=== PATIENT | female | born 1960 | race Two or more races ===

== ENCOUNTER 2017-06-02 07:47 | Inpatient (IN) | payer MEDICAID ==
[~2017-06-02] VITALS: Ht 157.5 cm; Wt 83.9 kg
[2017-06-02] MEDS ORDERED: LIDOCAINE HCL 2 %PF INJ 10ML AMP IJ ONE ×2 (08:04→09:26)
[2017-06-02] MEDS ORDERED: IODIXANOL 320MG/ML 100ML BTL IV ONE (08:04)
[2017-06-02] MEDS ORDERED: COLCPOW2 PO (08:08)
[2017-06-02] MEDS ORDERED: GLIP-116 PO (08:08)
[2017-06-02] MEDS ORDERED: NITR0.4S29 SL (08:08)
[2017-06-02] MEDS ORDERED: METF-370 PO (08:08)
[2017-06-02] MEDS ORDERED: INDO50CA82 PO (08:08)
[2017-06-02] MEDS ORDERED: CETI10TA93 PO (08:08)
[2017-06-02] MEDS ORDERED: ANGIOMAX 250 MG VIAL IV ONE ×2 (08:22→10:24)
[2017-06-02] MEDS ORDERED: fentaNYL CITRATE 100 MCG/2 ML VL ONE (08:22)
[2017-06-02] MEDS ORDERED: MIDAZOLAM HCL 1MG/1ML-2 ML VIAL ONE (08:23)
[2017-06-02] MEDS ORDERED: SODIUM CHL 0.9% 50 ML ONE ×3 (08:23→10:24)
[2017-06-02] MEDS ORDERED: DULA1INJ SC (08:39)
[2017-06-02] MEDS ORDERED: BUPR100T14 PO (08:39)
[2017-06-02] MEDS ORDERED: ASPI81TA27 PO (08:39)
[2017-06-02] MEDS ORDERED: HYDR-3682 PO (08:39)
[2017-06-02] MEDS ORDERED: ATOR10TA52 PO (08:39)
[2017-06-02] MEDS ORDERED: HYDR-4683 PO (08:39)
[2017-06-02] MEDS ORDERED: LISI10TA6 PO (08:39)
[2017-06-02] MEDS ORDERED: methylPREDNISolone SOD SUCC 125 MG/2 ML VL ONE (08:58)
[2017-06-02] MEDS ORDERED: FAMOTIDINE (10MG/ML) 2ML VL IV ONE (08:58)
[2017-06-02] MEDS ORDERED: diphenhdrAMINE HCL 50 MG/1 ML VL ONE (08:58)
[2017-06-02] MEDS ORDERED: CLOPIDOGREL 300 MG TAB ONE (10:16)
[2017-06-02] MEDS ORDERED: ASPirin 325 MG TAB ONE (10:17)
[2017-06-02] MEDS ORDERED: ASPirin 325 MG TAB PO ONE (10:30)
[2017-06-02] MEDS ORDERED: MORPHINE SULFATE 4 MG/ML SYR/VIAL IV PRN (10:45)
[2017-06-02] MEDS ORDERED: HYDROcodone-ACET 5/325MG TAB PO PRN (10:45)
[2017-06-02] MEDS ORDERED: SODIUM CHLORIDE 0.9% 1,000 ML IV ONE (10:45)
[2017-06-02] MEDS ORDERED: ONDANSETRON HCL 4 MG/2 ML VIAL IV PRN (10:45)
[2017-06-02] MEDS ORDERED: NITROGLYCERIN 0.4 MG SL TAB SL PRN (10:45)
[2017-06-02] MEDS ORDERED: Dulaglutide (Trulicity) 0.75 MG SC SCH (11:00)
[2017-06-02] MEDS ORDERED: DEXTROSE (50%) 50ML SYRG IV PRN ×2 (11:15→23:00)
[2017-06-02] MEDS: INDOMETHACIN 50 MG PO SCH ×3 (12:00→22:00)
[2017-06-02] MEDS: ACCU-CHEK COMFORT CURVE STRIP VI SCH ×3 (12:17→22:20)
[2017-06-02] MEDS: InsuLIN REG 1unit/0.01ml Soln (100units/ml) SC SCH ×2 (12:26→17:01)
[2017-06-02 13:00] VITALS: BP 147/76
[2017-06-02] MEDS: hydrOXYzine 25 MG TAB or CAP PO SCH ×2 (13:29→22:14)
[2017-06-02] MEDS: SODIUM CHLOR 0.9% PF (SALINE LOCK) 10ML VIAL IV SCH ×2 (13:29→22:14)
[2017-06-02 16:51] VITALS: BP 126/64
[2017-06-02] MEDS: ACETAMINOPHEN 500 MG TAB PO PRN ×2 (16:51→22:16)
[2017-06-02] MEDS: glipiZIDE 5 MG TAB PO SCH (16:55)
[2017-06-02] MEDS ORDERED: diphenhdrAMINE HCL 25 MG CAP PO PRN (18:00)
[2017-06-02] MEDS ORDERED: InsuLIN REG 1unit/0.01ml Soln (100units/ml) SC ONE (18:00)
[2017-06-02 20:00] VITALS: BP 146/68
[2017-06-02] MEDS ORDERED: ATORVASTATIN 20 MG TAB PO SCH (22:00)
[2017-06-02] MEDS: COLCHICINE 0.6 MG TAB PO SCH (22:00)
[2017-06-02] MEDS ORDERED: InsuLIN REG 1unit/0.01ml Soln (100units/ml) SC SCH (22:00)
[2017-06-02 22:03] VITALS: BP 146/68
[2017-06-02] MEDS: buPROPion HCL 100 MG TAB PO SCH (22:14)
[2017-06-02] MEDS: LISINOPRIL 10 MG TAB PO SCH (22:16)
[2017-06-03] MEDS: ACCU-CHEK COMFORT CURVE STRIP VI SCH ×4 (00:05→12:15)
[2017-06-03] MEDS: InsuLIN REG 1unit/0.01ml Soln (100units/ml) SC SCH ×4 (00:07→12:15)
[2017-06-03 05:18] VITALS: BP 125/61
[2017-06-03] MEDS: hydrOXYzine 25 MG TAB or CAP PO SCH (06:00)
[2017-06-03] MEDS: INDOMETHACIN 50 MG PO SCH (06:00)
[2017-06-03] MEDS: SODIUM CHLOR 0.9% PF (SALINE LOCK) 10ML VIAL IV SCH (06:06)
[2017-06-03] MEDS: glipiZIDE 5 MG TAB PO SCH (06:55)
[2017-06-03 09:00] VITALS: BP 116/63
[2017-06-03] MEDS: COLCHICINE 0.6 MG TAB PO SCH (09:30)
[2017-06-03] MEDS: buPROPion HCL 100 MG TAB PO SCH (09:31)
[2017-06-03] MEDS: ACETAMINOPHEN 500 MG TAB PO PRN (09:32)
[2017-06-03] MEDS: LISINOPRIL 10 MG TAB PO SCH (09:32)
[2017-06-03] MEDS ORDERED: CLOPIDOGREL BISULFATE 75 MG TAB PO SCH (10:00)
[2017-06-03] MEDS ORDERED: ASPirin 81 mg TAB PO SCH (10:00)
[2017-06-03] MEDS ORDERED: LORATADINE 10 MG TAB PO SCH (10:00)
[2017-06-03] MEDS ORDERED: NITROGLYCERIN 0.4 MG SL TAB SL PRN (12:30)
[2017-06-03] MEDS ORDERED: HYDROcodone-ACET 5/325MG TAB PO PRN (12:30)
[2017-06-03 13:00] VITALS: BP 103/58
[2017-06-03] MEDS ORDERED: ASPirin 81 mg TAB PO ONE (13:00)
[2017-06-04] MEDS ORDERED: ASPirin-EC 81 mg tab PO SCH (10:00)
== END 2017-06-03 14:23 | disposition home or self-care (01) | DRG 175 ==
LOC: CATH 07:47 → WEST WING 07:48 → TELE-WESTW 13:10
PROVIDERS: ADMIT Internal Medicine Cardiovascular Disease; ATTEND Internal Medicine Cardiovascular Disease
PROC: 027034Z Dilation of Coronary Artery, One Artery with Drug-eluting Intraluminal Device, Percutaneous Approach (ICD-10-PCS; principal; 2017-06-02)
PROC: 4A023N7 Measurement of Cardiac Sampling and Pressure, Left Heart, Percutaneous Approach (ICD-10-PCS; 2017-06-02)
PROC: B2111ZZ Fluoroscopy of Multiple Coronary Arteries using Low Osmolar Contrast (ICD-10-PCS; 2017-06-02)
PROC: B240ZZ3 Ultrasonography of Single Coronary Artery, Intravascular (ICD-10-PCS; 2017-06-02)
DX: I25.10 Atherosclerotic heart disease of native coronary artery without angina pectoris (principal); E11.65 Type 2 diabetes mellitus with hyperglycemia; I10 Essential (primary) hypertension; Z79.02 Long term (current) use of antithrombotics/antiplatelets; Z79.82 Long term (current) use of aspirin; Z95.5 Presence of coronary angioplasty implant and graft; Z79.84 Long term (current) use of oral hypoglycemic drugs; Z79.899 Other long term (current) drug therapy
CPT/HCPCS: 82962; 92928; 92978; 93005; 93458; 99152; 99153; C1874; C1887; J1815; J2250; J3490; Q9967

== ENCOUNTER 2017-06-24 06:38 | Emergency (ER) | payer MEDICAID ==
[~2017-06-24] VITALS: Ht 157.5 cm; Wt 81.6 kg
[~2017-06-24 06:38] MED LIST: ASPI81TA27 PO; ATOR10TA52 PO; BUPR100T14 PO; CETI10TA93 PO; COLCPOW2 PO; DULA1INJ SC; GLIP-116 PO; HYDR-3682 PO; HYDR-4683 PO; INDO50CA82 PO; LISI10TA6 PO; METF-370 PO; NITR0.4S29 SL
[2017-06-24] MEDS ORDERED: KETOROLAC TROMETH 30 MG/ML 1ML VIAL IV ONE (08:30)
[2017-06-24 08:33] LABS: Urine Bacteria NONE SEEN /hpf (None Seen); Urine Blood 3+ /uL (Negative); Urine Mucus FEW (None Seen); Urine Specific Gravity 1.016 (1.001-1.035); Urine WBC 13 /hpf (0 - 5)
[2017-06-24 08:55] LABS: Basophils # (auto) 0.1 uL; Basophils % (auto) 0.8 % (0.0-2.0); Eosinophils # (auto) 0.2 uL; Eosinophils % (auto) 1.5 % (0.0-7.0); Hematocrit 40.9 % (36.0-46.0); Hemoglobin 13.6 g/dL (12.2-16.2); Lymphocytes # (auto) 1.7 uL; Lymphocytes % (auto) 12.5 % (10.0-50.0); Mean Corpuscular Hemoglobin 30.2 pg (28.0-32.0); Mean Corpuscular Hgb Conc. 33.4 g/dL (32.0-36.0); Mean Corpuscular Volume 90.6 fL (80.0-100.0); Monocytes # (auto) 0.5 uL; Monocytes % (auto) 3.6 % (0.0-12.0); Neutrophils # (auto) 11.4 uL; Neutrophils % (auto) 81.6 % (37.0-80.0); Nucleated Red Blood Cells % 0.1 %; Platelet Count (auto) 368 10^3/uL (140-450); Red Blood Cells 4.52 10^6/uL (4.0-5.20); Red Cell Distribution Width 13.9 % (11.8-14.3)
[2017-06-24 09:02] VITALS: BP 133/71
[2017-06-24 09:11] LABS: INR 0.96 (0.9-1.15); Partial Thromboplastin Time 24.1 sec (22.64-33.71); Prothrombin Time 10.5 sec (9.37-12.3)
[2017-06-24] MEDS ORDERED: SODIUM CHLORIDE 0.9% 1,000 ML IV ONE ×2 (09:12)
[2017-06-24] MEDS ORDERED: ONDANSETRON HCL 4 MG/2 ML VIAL IV ONE (09:15)
[2017-06-24] MEDS ORDERED: MORPHINE SULFATE 4 MG/ML SYR/VIAL IV ONE (09:15)
[2017-06-24] MEDS ORDERED: cefTRIAXone 1GM/10ml IVPUSH 10 ML IV ONE (09:15)
[2017-06-24 09:18] LABS: Alanine Aminotransferase 14 U/L (13-56); Albumin 3.5 g/dL (3.4-5.0); Alkaline Phosphatase 113 U/L (45-117); Anion Gap 9 (5-15); Aspartate Aminotransferase 8 U/L (15-37); BUN/Creatinine Ratio 25.2; Bilirubin, Total 0.4 mg/dL (0.2-1.0); Blood Urea Nitrogen 27 mg/dL (7-18); Calcium 9.2 mg/dL (8.5-10.1); Carbon Dioxide 23 mmol/L (21-32); Chloride 106 mmol/L (98-107); GFR African American 68 mL/min; GFR Non-African American 56 mL/min; Glucose 375 mg/dL (74-106); Potassium 4.4 mmol/L (3.5-5.1); Sodium 138 mmol/L (136-145); Total Protein 7.9 g/dL (6.4-8.2)
== END 2017-06-24 10:07 | disposition home or self-care (01) ==
LOC: ER 06:39
DX: N20.0 Calculus of kidney (principal); N39.0 Urinary tract infection, site not specified; Z91.041 Radiographic dye allergy status
CPT/HCPCS: 36415; 74176; 80053; 81001; 84484; 85025; 85610; 85730; 93005; 96361; 96374; 96375; 99285; J2270; J2405; J7030

== ENCOUNTER → 2022-07-20 | Outpatient (CLI) | payer MEDICAID ==
[~2022-07-20] MED LIST changes: +ASPI-543 PO; -ASPI81TA27 PO; +BUPR-346 PO; -BUPR100T14 PO; -GLIP-116 PO; +GLIP10TA9 PO; -HYDR-4683 PO; +HYDR-4833 PO; +LISI10TA34 PO; -LISI10TA6 PO
== END | disposition home or self-care (01) ==
LOC: Rad HDHVI 14:16
PROVIDERS: ATTEND Internal Medicine Cardiovascular Disease
DX: I10 Essential (primary) hypertension (principal); E78.5 Hyperlipidemia, unspecified
CPT/HCPCS: 93306

== ENCOUNTER → 2022-12-09 | Outpatient (CLI) | payer MEDICAID ==
[~2022-12-09] VITALS: Ht 154.9 cm; Wt 81.6 kg
== END | disposition home or self-care (01) ==
LOC: Rad HDHVI 13:18
PROVIDERS: ATTEND Internal Medicine Cardiovascular Disease
DX: Z01.810 Encounter for preprocedural cardiovascular examination (principal); R00.1 Bradycardia, unspecified; R06.02 Shortness of breath; E11.9 Type 2 diabetes mellitus without complications; I25.2 Old myocardial infarction; I25.10 Atherosclerotic heart disease of native coronary artery without angina pectoris; R42 Dizziness and giddiness; E78.00 Pure hypercholesterolemia, unspecified; Z79.899 Other long term (current) drug therapy
CPT/HCPCS: 78452; 93017; 96374; A9500

== ENCOUNTER → 2023-10-28 | Outpatient (CLI) | payer MEDICAID | END | disposition home or self-care (01) | LOC: Rad HDHVI 08:00 | PROVIDERS: ATTEND Internal Medicine Cardiovascular Disease | DX: I34.0 Nonrheumatic mitral (valve) insufficiency (principal); I34.81 Nonrheumatic mitral (valve) annulus calcification; I51.7 Cardiomegaly | CPT/HCPCS: 93306 ==